=== PATIENT | male | born 1970 | race Caucasian/White ===

== ENCOUNTER → 2017-06-11 | Outpatient (CLI) | payer OTHER ==
[~2017-06-11] MED LIST: PERFLUTREN LIPID MICROSPHERE (DEFINITY) IV ONE
--- NOTE | 2017-06-11 19:00 | EXERCISE STRESS ECHO ---
*NOTICE TO RECEIVING REPUBLICAN AGENCY This information is strictly Confidential and protected under [place] law. [place] law prohibits you from making any further disclosure of this information unless further disclosure is expressly permitted by the written consent of the person to whom it pertains or is authorized by law. A general authorization for the release of medical or other information is not sufficient for this purpose. Hospital accepts no responsibility if the information is made available to any other person, INCLUDING THE PATIENT. Interpretation Summary * Name: EMMANUELLE RODRIGUEZ Study Date: 06/11/2017 09:48 AM BP: 115/83 mmHg * Patient Location: [facility] HR: 77 * : 1970 (M/d/yyyy) Gender: Male Height: 74 in * Age: 46 yrs Ethnicity: [place] Weight: 255 lb * Ordering Physician: Delbert Gant * Referring Physician: Delbert Gant D.O. * Performed By: Farida Nolasco RCS * * Reason For Study: EXERTIONAL DYSPNEA * BSA: 2.4 m2 * -- Conclusions -- * Stress Echo: * 1. Negative stress echo for ischemia at 99 % MPHR. * 2. Negative exercise ECG for ischemia at 99 % MPHR. * 3. Appropriate blood pressure response to exercise. * 4. He presented in sinus rhythm and before stress testing began, developed atrial fibrillation with rapid ventricular response for approximately 1 hour before spontaneously converting to sinus rhythm. Stress testing was performed while in sinus rhythm, after his atrial fibrillation episode. * 5. Study terminated due to fatigue. No chest pain reported. * 6. Good exercise tolerance. * 7. Technically difficult study, enhanced with IV Definity. * 8. Dr. Gant's office was notified regarding atrial fibrillation and the diagnosis was discussed with Mr. Rodriguez in detail. He was in sinus rhythm at the completion of today's study * Echo: * 1. Normal left ventricular size and systolic function. EF 55-60%. No regional wall motion abnormalities. No left ventricular hypertrophy. Type 1 diastolic dysfunction. * 2. No significant valvular abnormalities visualized. * 3. No prior study available for comparison. Procedure Details * ECHOEX, CPT #[id number] * ECHO COLOR FLOW, CPT #[id number] * ECHO DOPPLER, CPT #[id number] * A contrast injection of Definity was performed to improve assessment of LV function. * Contrast was injected into an intravenous site in the left arm. * One vial of Definity ultrasound contrast was diluted in normal saline to a total volume of 10 ml. A total of '3' ml of solution was administered during imaging. * Lot # [id number] of Definity utilized for procedure. * Expiration date 1 MAY 12. * The attending nurse who injected the contrast agent was SIM ESCALANTE CPL, RN. Left Ventricle * The left ventricle is normal in size. * There is normal left ventricular wall thickness. * Left ventricular systolic function is normal. * Resting wall motion: Normal. Stress wall motion: Appropriate increase in Left ventricular systolic function and decrease in cavity size. No stress induced segmental wall motion abnormalities. * The left ventricular ejection fraction increases normally with stress. The left ventricular end-systolic cavity size reduces post-stress (normal response). The left ventricular wall motion with stress is normal. Right Ventricle * Borderline right ventricular enlargement. * The right ventricular systolic function is normal as assessed by tricuspid annular plane systolic excursion (TAPSE) (normal >1.5 cm). Atria * The left atrial size is normal. * Right atrial size is normal. * There is no evidence of atrial septal defect, but resolution does not allow assessment for a patent foramen ovale. Mitral Valve * The mitral valve is grossly normal. * There is no mitral valve stenosis. * Significant mitral regurgitation is absent. Tricuspid Valve * The tricuspid valve is not well visualized, but is grossly normal. * There is no tricuspid stenosis. * Significant tricuspid regurgitation is absent. Aortic Valve * The aortic valve is trileaflet. * No hemodynamically significant valvular aortic stenosis. * No aortic regurgitation is present. Pulmonic Valve * The pulmonary valve is inadequately visualized, but the Doppler data is adequate for interpretation. * Trace pulmonic valvular regurgitation. Great Vessels * The aortic root is normal size. * Normal pulmonary and hepatic venous flow patterns. Normal IVC size and inspiratory collapse. Pericardium * There is no pericardial effusion. Stress Parameters * Initial ECG at rest demonstrated sinus rhythm at 77 bpm. He then developed atrial fibrillation with rapid ventricular response with heart rates up into the 130s and was asymptomatic while at rest. Atrial fibrillation began with the placement of IV. Atrial fibrillation lasted approximately 1 hour. He then spontaneously converted to sinus rhythm and stress testing was pursued as ordered. * Stress ECG: No ST changes. No arrhythmias. * The stress portion of this study was personally supervised by the undersigned interpreting physician. * Rest heart rate was '77' BPM. * Rest blood pressure was '115/83' * Maximum heart rate achieved was 173 bpm. * Maximum heart rate was 99 % of maximum age-predicted heart rate. * Maximum blood pressure was '183/99' * Total exercise time was '10:41' * Maximum exercise MET level achieved was '12.60' METS * Maximum treadmill speed was '4.10' miles per hour. * Maximum treadmill elevation was '16.00'% grade. * Exercise was terminated due to 'Dyspnea and fatigue' * Normal blood pressure response to exercise. MMode 2D Measurements and Calculations IVSd 1.1 cm IVSs 1.7 cm LVIDd 4.6 cm LVIDs 3.2 cm LVPWd 1.0 cm LVPWs 1.4 cm IVS/LVPW 1.1 FS 31.2 % EDV(Teich) 97.7 ml ESV(Teich) 40.0 ml EF(Teich) 59.0 % EDV(cubed) 97.8 ml ESV(cubed) 31.8 ml EF(cubed) 67.4 % % IVS thick 55.4 % % LVPW thick 38.6 % LV mass(C)d 174.9 grams LV mass(C)dI 72.6 grams/m\S\2 LV mass(C)s 184.3 grams LV mass(C)sI 76.5 grams/m\S\2 SV(Teich) 57.7 ml SI(Teich) 23.9 ml/m\S\2 SV(cubed) 66.0 ml SI(cubed) 27.4 ml/m\S\2 Ao root diam 3.5 cm Ao root area 9.8 cm\S\2 LA dimension 3.6 cm asc Aorta Diam 2.8 cm LA/Ao 1.0 Doppler Measurements and Calculations MV E max angela 62.0 cm/sec MV A max angela 65.8 cm/sec MV E/A 0.94 MV P1/2t max angela 65.6 cm/sec MV P1/2t 63.7 msec MVA(P1/2t) 3.5 cm\S\2 MV dec slope 301.3 cm/sec\S\2 MV dec time 0.19 sec Ao V2 max 110.4 cm/sec Ao max PG 4.9 mmHg Ao max PG (full) 0.63 mmHg LV V1 max PG 4.2 mmHg LV V1 max 103.0 cm/sec PA V2 max 85.4 cm/sec PA max PG 2.9 mmHg
== END | disposition home or self-care (01) ==
LOC: C.CPL 09:51
DX: R06.00 Dyspnea, unspecified (principal)

== ENCOUNTER 2017-07-18 11:02 | Emergency (ER) | payer OTHER ==
[~2017-07-18] VITALS: Ht 188 cm; Wt 111.2 kg
[2017-07-18 11:11] VITALS: TEMP 36.7; Ht 188 cm; Wt 111.2 kg
[2017-07-18] MEDS ORDERED: PROB1TAB16 PO (11:17)
[2017-07-18] MEDS ORDERED: MULT-506 PO (11:17)
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
[2017-07-18 12:42] VITALS: BP 130/84; PULSE 68; O2SAT 99
== END 2017-07-18 12:43 | disposition home or self-care (01) ==
LOC: C.EDB 11:03 → C.EDD 12:43
DX: S00.81XA Abrasion of other part of head, initial encounter (principal); V43.52XA Car driver injured in collision with other type car in traffic accident, initial encounter; Y92.410 Unspecified street and highway as the place of occurrence of the external cause; Z79.899 Other long term (current) drug therapy

== ENCOUNTER 2020-04-28 21:34 | Inpatient (IN) ==
[2020-04-28] MEDS ORDERED: DEXAMETHASONE SOD INJ 10 MG/ML VIAL IV ONE (21:51)
[2020-04-28] MEDS ORDERED: GI COCKTAIL ED USE PO ONE (21:51)
--- NOTE | 2020-04-28 21:58 | Emergency Department Note ---
History of Present Illness General Chief complaint: Illness Stated complaint: +COVID/ CHEST PAIN; SOB Time Seen by Provider: 04/28/20 21:35 History of Present Illness This 49-year-old presents to the ER complaining of worsening Covid symptoms who tested +2 days ago Location: Generalized Quality: Hard to breathe Severity: Moderate Duration: Past few days Timing: Started few days ago Context: Patient's pulse ox was in the mid 80s and called EMS Modifying factors: better with oxygen; worse with activity Patient states his home pulse ox was in the mid 80s. He developed chest pain and worsening shortness of breath. His was concerned and called EMS. He states he was exposed to Covid at work. Patient denies a fever, chills, body aches, dyspnea and acid reflux. Patient is requested to be admitted to the hospital. Home Medications Medication Instructions Recorded Confirmed Type ipratropium-albuterol 3 ml INHALATION QID PRN 04/26/20 04/28/20 History mometasone-formoterol [Dulera] 2 puff INHALATION BID PRN 04/26/20 04/28/20 History prednisone 20 mg PO UD 04/28/20 04/28/20 History Allergies Allergy/AdvReac Type Severity Reaction Status Date / Time No Known Allergies Allergy Unverified 04/28/20 23:26 Past Med/Surg History Medical History No significant past medical history Surgical History History of vasectomy Family History Other Coronary heart disease Heart disease Social History Smoking Status: Never smoker Preferred Language: Finnish marital status: Current Living Situation: Family current occupational status: employed Feels Safe at Home: Yes Review of Systems A total of 10 systems reviewed and were otherwise negative Physical Exam Vital Signs Vital Signs - 24 hr 04/28/20 21:49 04/28/20 21:58 04/28/20 22:00 Temperature 39.5 C H Temperature Source Oral Pulse Rate 105 H Respiratory Rate 18 Respiratory Effort / Characteristics Non-Labored Blood Pressure 136/75 Blood Pressure Mean 95 Pulse Oximetry 93 90 90 Oxygen Delivery Method Room Air Room Air Room Air Oxygen Flow Rate Sepsis Recent Fever Within 48 Hours Yes Sepsis New/Unexplained Change in Mental Status N/A Sepsis Action Taken by Nursing Physician Notified 04/28/20 22:33 Temperature Temperature Source Pulse Rate Respiratory Rate Respiratory Effort / Characteristics Blood Pressure Blood Pressure Mean Pulse Oximetry 94 Oxygen Delivery Method Nasal Cannula Oxygen Flow Rate 2 Sepsis Recent Fever Within 48 Hours Sepsis New/Unexplained Change in Mental Status Sepsis Action Taken by Nursing VITALS: Vitals are noted on the nurse's note and reviewed by myself. Vital signs reviewed. GENERAL: White male ill-appearing, appearing short of breath SKIN: The skin was without rashes, erythema, edema, or bruising. There is no tenting of the skin. Capillary reflex less than 2 seconds. HEAD: Normocephalic atraumatic. EARS: External auditory canals clear EYES: Pupils equal round and reactive to light and accommodation. Conjunctivae without injection, sclerae without icterus. Extraocular movements intact. NOSE: Patent, turbinates without inflammation or discharge. MOUTH: Mucous membranes mildly dry. Pharynx without erythema or exudate. Uvula midline. Airway patent. Tongue does not deviate. NECK: Supple without nuchal rigidity. No lymphadenopathy. No thyromegaly. Cervical spine is nontender. No JVD. HEART: Regular rate and rhythm without murmurs gallops or rubs. LUNGS: Mild diffuse end expiratory wheezes, No retractions or accessory muscle use. ABDOMEN: Positive bowel sounds x 4. Normal tympanic percussion. Soft, nontender, without masses or organomegaly. Pacheco sign negative. No guarding or rebound tenderness. No CVA tenderness MUSCULOSKELETAL: No muscle atrophy, erythema, or edema noted. NEURO: Patient was alert and oriented to person place and time. Normal sensation to light and sharp touch. No focal neurological deficits. Course Administered Medications Discontinued Medications Al Hydrox/Mg Hydrox/Simethicone (Gi Cocktail Ed Use) 1 dose PO ONE ONE Stop: 04/28/20 21:52 Last Admin: 04/28/20 22:34 Dose: 1 dose Documented by: [id number] Dexamethasone (Dexamethasone Sod Inj 10 Mg/Ml Vial) 6 mg IV NOW ONE Stop: 04/28/20 21:52 Last Admin: 04/28/20 22:34 Dose: 6 mg Documented by: [id number] Sodium Chloride (Nss 1000ml) 1,000 mls @ 999 mls/hr IV .Q1H1M FE Stop: 04/28/20 23:00 Last Infusion: 04/28/20 23:51 Dose: 0 mls/hr Documented by: [id number] Admin: 04/28/20 22:34 Dose: 999 mls/hr Documented by: [id number] Ibuprofen (Ibuprofen 800 Mg Tab) 800 mg PO NOW STA Stop: 04/28/20 22:57 Last Admin: 04/28/20 23:07 Dose: 800 mg Documented by: [id number] Medical Decision Making Medical Records Attestation: I reviewed the patient's medical records. Home Medications Current Medication List: was personally reviewed by me Laboratory Data Attestation: I reviewed the patient's lab results. Result diagrams: 04/28/20 22:28 04/28/20 22:28 Lab Results 04/28/20 04/28/20 04/28/20 Range/Units 22:28 22:28 22:28 WBC 5.49 (4.8-10.8) K/uL RBC 4.54 L (4.7-6.1) M/uL Hgb 13.6 L (14.0-18.0) g/dL Hct 39.4 L (42-52) % MCV 86.8 (80-100) fL MCH 30.0 (25-34) pg MCHC 34.5 (32-36) g/dL RDW Std Deviation 43.0 (36.4-46.3) fL RDW Coeff of Anjelica 13.5 (11.5-14.5) % Plt Count 170 (130-400) K/uL MPV 10.0 (7.4-10.4) fL Immature Gran % (Auto) 0.2 % Neut % (Auto) 78.2 % Lymph % (Auto) 15.8 % Collingsworth % (Auto) 5.6 % Eos % (Auto) 0.0 % Baso % (Auto) 0.2 % Neut # (Auto) 4.29 (1.4-6.5) K/uL Lymph # (Auto) 0.87 L (1.2-3.4) K/uL Collingsworth # (Auto) 0.31 (0.11-0.59) K/uL Eos # (Auto) 0.00 (0-0.5) K/uL Baso # (Auto) 0.01 (0-0.2) K/uL Immature Gran # (Auto) 0.01 (0.00-0.02) K/uL PT (9.0-12.0) Seconds INR (0.9-1.1) APTT (21.0-31.0) Seconds PTT Ratio ABG pH 7.45 (7.35-7.45) ABG pCO2 35 (35-46) mmHg ABG pO2 45 L (80-95) mmHg ABG HCO3 24 (19-24) mmol/L ABG O2 Saturation 81.3 L (90-95) % ABG Base Excess 0.1 (-9-1.8) mEq/L Hussain Test Pos (Pos) Barometric Pressure 727.0 mm/Hg Oxygen Given Room Air Sodium 134 L (136-145) mmol/L Potassium 3.7 (3.5-5.1) mmol/L Chloride 102 (98-107) mmol/L Carbon Dioxide 26 (21-32) mmol/L Anion Gap 6.0 (3-11) BUN 12 (7-18) mg/dl Creatinine 1.05 (0.6-1.4) mg/dl Est Cr Clr Drug Dosing 117.3 ml/min Est GFR ( Amer) 96.1 Est GFR (Non-Af Amer) 83.0 BUN/Creatinine Ratio 11.1 (10-20) Glucose 95 (70-99) mg/dl Lactate (0.4-2.0) mmol/L Calcium 8.3 L (8.5-10.1) mg/dl Magnesium 1.4 L (1.8-2.4) mg/dl Total Bilirubin 0.4 (0.2-1) mg/dl AST 23 (15-37) U/L ALT 28 (12-78) U/L Alkaline Phosphatase 59 (45-117) U/L Troponin I < 0.015 (0-0.045) ng/ml Total Protein 6.8 (6.4-8.2) gm/dl Albumin 3.1 L (3.4-5.0) gm/dl Globulin 3.7 (2.5-4.0) gm/dl Albumin/Globulin Ratio 0.8 L (0.9-2) 04/28/20 04/28/20 Range/Units 22:28 22:28 WBC (4.8-10.8) K/uL RBC (4.7-6.1) M/uL Hgb (14.0-18.0) g/dL Hct (42-52) % MCV (80-100) fL MCH (25-34) pg MCHC (32-36) g/dL RDW Std Deviation (36.4-46.3) fL RDW Coeff of Anjelica (11.5-14.5) % Plt Count (130-400) K/uL MPV (7.4-10.4) fL Immature Gran % (Auto) % Neut % (Auto) % Lymph % (Auto) % Collingsworth % (Auto) % Eos % (Auto) % Baso % (Auto) % Neut # (Auto) (1.4-6.5) K/uL Lymph # (Auto) (1.2-3.4) K/uL Collingsworth # (Auto) (0.11-0.59) K/uL Eos # (Auto) (0-0.5) K/uL Baso # (Auto) (0-0.2) K/uL Immature Gran # (Auto) (0.00-0.02) K/uL PT 10.3 (9.0-12.0) Seconds INR 1.0 (0.9-1.1) APTT 33.8 H (21.0-31.0) Seconds PTT Ratio 1.3 ABG pH (7.35-7.45) ABG pCO2 (35-46) mmHg ABG pO2 (80-95) mmHg ABG HCO3 (19-24) mmol/L ABG O2 Saturation (90-95) % ABG Base Excess (-9-1.8) mEq/L Hussain Test (Pos) Barometric Pressure mm/Hg Oxygen Given Sodium (136-145) mmol/L Potassium (3.5-5.1) mmol/L Chloride (98-107) mmol/L Carbon Dioxide (21-32) mmol/L Anion Gap (3-11) BUN (7-18) mg/dl Creatinine (0.6-1.4) mg/dl Est Cr Clr Drug Dosing ml/min Est GFR ( Amer) Est GFR (Non-Af Amer) BUN/Creatinine Ratio (10-20) Glucose (70-99) mg/dl Lactate 1.2 (0.4-2.0) mmol/L Calcium (8.5-10.1) mg/dl Magnesium (1.8-2.4) mg/dl Total Bilirubin (0.2-1) mg/dl AST (15-37) U/L ALT (12-78) U/L Alkaline Phosphatase (45-117) U/L Troponin I (0-0.045) ng/ml Total Protein (6.4-8.2) gm/dl Albumin (3.4-5.0) gm/dl Globulin (2.5-4.0) gm/dl Albumin/Globulin Ratio (0.9-2) Imaging Data Attestation: I personally reviewed and interpreted this imaging study as follows: MDM Narrative Prior records/ancillary studies reviewed. Triage Nursing notes reviewed. Additional history obtained from EMS The patient's history was concerning for fever. Differential diagnosis: Etiologies such as viral syndrome, otitis, pharyngitis, pneumonia, influenza, m eningitis, urinary tract infection, sepsis, bacteremia, as well as others were entertained. Physical examination: As above ER treatment provided: An order was placed for continuous cardiac monitoring. The monitor shows a rate of 60-1 20 with a sinus rhythm. IV fluids, Decadron On reassessment the patient felt better. Diagnostics interpreted by me: ECG: Poor baseline, normal sinus, no acute ST-T wave changes, rate of 104. Impression sinus tachycardia interpreted by myself EKG ordered for dyspnea I think arrhythmia is unlikely. EKG shows normal sinus rhythm with no interval abnormalities such as QT prolongation or WPW. There are no findings to suggest Brugada syndrome. Cardiac monitoring in the emergency department reveals no tachycardic or bradycardic dysrhythmia. Hypertrophic cardiomyopathy was considered but there are no clear historical elements pointing toward this. EKG is not suggestive. The QRS voltage is not extremely large and there are no suggestive Q waves. The labs revealed no leukocytosis Blood cultures pending Known Covid per patient ABG reviewed Imaging studies: Chest x-ray with patchy infiltrates per my interpretation Consultation: A consultation was placed with Dr. Armstrong. The case was discussed and diagnostics were reviewed. The patient was evaluated in the ER for further treatment. This appears to be consistent with Covid pneumonia who is hypoxic. Patient was given steroids. Medicine was consulted. He will be evaluated for admission. Patient is requesting for admission. By the evaluation outlined above emergent etiologies such as otitis, pharyngitis, meningitis, urinary tract infection, sepsis, bacteremia, as well as others were deemed relatively unlikely. The pt informed about the findings as listed above. All questions were answered and pleased with the treatment. The chart was completed utilizing [employer] Speech voice recognition software. Grammatical errors, random word insertions, pronoun errors, and incomplete sentences are an occassional consequence of this system due to software limitations, ambient noise, and hardware issues. Any formal questions or concerns about the content, text, or information contained within the body of this dictation should be directly addressed to the physician contract administrative assistant for clarification. Impression & Plan Pneumonia due to 2019 novel coronavirus, Hypoxemia Discharge Plan Visit Data Chief Complaint: Illness Stated Complaint: +COVID/ CHEST PAIN; SOB ED Provider: Fausto Pulido ED Midlevel Provider: Irish Arredondo Discharge Problem: Pneumonia due to 2019 novel coronavirus, Hypoxemia Patient Disposition: Admitted As Inpatient Condition: Fair Forms Stand Alone Forms: My [facility] [employer] Prescriptions Prescriptions: No Action Dulera 200-5 mcg/actuation HFA aerosol inhaler 2 puff inhalation BID PRN (Reason: Shortness Of Breath Or Wheezing) RF: 0 ipratropium-albuterol 0.5 mg-3 mg(2.5 mg base)/3 mL solution for nebulization 3 ml INHALATION QID PRN (Reason: Shortness Of Breath Or Wheezing) RF: 0 prednisone 20 mg tablet 20 mg PO UD RF: 0 Referrals Referrals: Delbert Gant Jr, [Primary Care Provider] -
[2020-04-28] MEDS ORDERED: SODIUM CHLORIDE 0.9% 1000ML 1,000 ML IV SCH (22:00)
[2020-04-28 22:45] LABS: Basophils # (auto) 0.01 K/uL (0-0.2); Basophils % (auto) 0.2 %; Hematocrit (blood only) 39.4 % (42-52); Hemoglobin 13.6 g/dL (14.0-18.0); Immature Granulocytes # (auto) 0.01 K/uL (0.00-0.02); Immature Granulocytes % (auto) 0.2 %; Lymphocytes # (auto) 0.87 K/uL (1.2-3.4); Lymphocytes % (auto) 15.8 %; Mean Corpuscular Hgb Conc 34.5 g/dL (32-36); Mean Corpuscular Volume 86.8 fL (80-100); Monocytes # (auto) 0.31 K/uL (0.11-0.59); Monocytes % (auto) 5.6 %; Neutrophils # (auto) 4.29 K/uL (1.4-6.5); Neutrophils % (auto) 78.2 %; Platelet Count 170 K/uL (130-400); RDW Coefficient of Variation 13.5 % (11.5-14.5); Red Blood Count 4.54 M/uL (4.7-6.1); White Blood Count 5.49 K/uL (4.8-10.8)
[2020-04-28 22:55] LABS: Partial Thromboplastin Ratio 1.3; Partial Thromboplastin Time 33.8 Seconds (21.0-31.0); Prothrombin Time 10.3 Seconds (9.0-12.0)
[2020-04-28] MEDS ORDERED: IBUPROFEN 800 MG TAB PO STA (22:56)
[2020-04-28 23:00] LABS: Base Excess ABG 0.1 mEq/L (-9-1.8); HCO3 ABG 24 mmol/L (19-24); Oxygen Saturation ABG 81.3 % (90-95); PCO2 ABG 35 mmHg (35-46); PO2 ABG 45 mmHg (80-95); pH ABG 7.45 (7.35-7.45)
[2020-04-28 23:01] LABS: Allen Test Pos (Pos)
[2020-04-28 23:04] LABS: Alanine Aminotransferase 28 U/L (12-78); Albumin Level 3.1 gm/dl (3.4-5.0); Aspartate Aminotransferase 23 U/L (15-37); BUN Creatinine Ratio 11.1 (10-20); Blood Urea Nitrogen 12 mg/dl (7-18); Calcium 8.3 mg/dl (8.5-10.1); Carbon Dioxide 26 mmol/L (21-32); Chloride 102 mmol/L (98-107); Creatinine Clr Calc Pharmacy 117.3 ml/min; Est GFR (African American) 96.1; Glucose 95 mg/dl (70-99); Magnesium 1.4 mg/dl (1.8-2.4); Potassium 3.7 mmol/L (3.5-5.1); Sodium 134 mmol/L (136-145)
[2020-04-28 23:08] LABS: Albumin Globulin Ratio 0.8 (0.9-2); Alkaline Phosphatase 59 U/L (45-117); Bilirubin,Total 0.4 mg/dl (0.2-1); Globulin 3.7 gm/dl (2.5-4.0); Total Protein 6.8 gm/dl (6.4-8.2); Troponin I < 0.015 ng/ml (0-0.045)
--- NOTE | 2020-04-29 00:21 | History & Physical Report ---
Date of Service April 29, 2020 Assessment & Plan (1) Pneumonia due to 2019 novel coronavirus: Pneumonia due to COVID-19 virus with hypoxemia- Dexamethasone 6 mg IV daily Nasal cannula oxygen, titrate to keep pulse ox 94 to 95% DuoNebs every 4 hours as needed Azithromycin 500 mg IV daily NSS + KCl 20 mEq at 100 mils per hour Breo Ellipta substitute for Dulera Zinc sulfate 200 mg p.o. every morning Present on Admission?: Yes (2) Hypoxemia: See above Present on Admission?: Yes (3) Hypomagnesemia: Magnesium 1.4 on admission labs. Give 2 g of mag sulfate IV, and recheck in a.m. Present on Admission?: Yes History of Present Illness Chief Complaint: The patient presents to the emergency department with worsening shortness of breath and fatigue secondary to COVID-19 infection Primary Care Provider: Delbert Gant Jr, DO The patient is a 49-year-old male with a past medical history including COVID-19 positive laboratory test at [facility] on 04/25/2020. He presented to the emergency department at [facility] on 04/26/2020 due to worsening symptoms, and was discharged to home on Dulera, Combivent and prednisone. Tonight patient reports with progressively worsening symptoms of shortness of breath, dyspnea on exertion and generalized fatigue. Allergies Allergy/AdvReac Type Severity Reaction Status Date / Time No Known Allergies Allergy Unverified 04/28/20 23:26 Home Medications Medication Instructions Recorded Confirmed Type ipratropium-albuterol 3 ml INHALATION QID PRN 04/26/20 04/28/20 History mometasone-formoterol [Dulera] 2 puff INHALATION BID PRN 04/26/20 04/28/20 Hist ory prednisone 20 mg PO UD 04/28/20 04/28/20 History Past Med/Surg History Medical History No significant past medical history Surgical History History of vasectomy Family History Other Coronary heart disease Heart disease Social History Smoking Status: Never smoker Hx Alcohol Use: Yes Hx Substance Use: No Preferred Language: Slovenian Communication Ability: Effective Talent Engineer Required: No Beliefs That Will Affect Care: None marital status: Current Living Situation: Family current occupational status: employed Other Information That Helps Us Care for You: No Feels Safe at Home: Yes Safety Concerns: Feels Safe At This Time Assistive Devices: Oxygen - Continuous Review of Systems Review of Systems: The patient denies chest pain, palpitations, cough, lower extremity swelling, sore throat, fevers, chills, sweats, nausea, vomiting, diarrhea , constipation, abdominal pain, pelvic pain, blood in urine or stool, dysuria, urinary frequency or urgency, lightheadedness, dizziness, headache, memory loss, loss of consciousness, rash, abnormal bruising or bleeding, imbalance, focal weakness, numbness or tingling in arms or legs, back or neck pain, or night sweats. The review of systems is otherwise negative other than for that already noted above, and at least 10 systems have been reviewed. Physical Exam Physical Exam: The patient is awake, alert and oriented 3, well developed and well nourished, normocephalic and atraumatic, lying in bed and in no acute distress. HEENT--PERRL, EOMI, mucous membranes and oropharynx dry. Neck--supple. No JVD. No bruits. Thyroid normal, trachea midline, no adenopathy. Heart--normal S1 and S2. No murmurs, rubs or gallops. Lungs--clear bilaterally, no respiratory distress, no accessory muscle use. Abdomen--normal bowel sounds and soft. Nontender. Nondistended, no hernias or masses, no organomegaly. Extremities--no cyanosis or clubbing. No edema. Dermatologic--normal skin turgor, normal color, no abnormal lymph nodes, no rash. Neurologic--cranial nerves II through XII grossly intact. Rheumatologic--normal range of motion. Psychiatric--normal affect. Results & Data Results & Data ([facility]) Vital Signs (Past 12 Hours) Vital Signs Temp Pulse Resp BP Pulse Ox 04/28/20 22:33 94 04/28/20 22:00 90 04/28/20 21:58 90 04/28/20 21:49 103.1 F H 105 H 18 136/75 93 Laboratory Results Laboratory Results WBC 5.49 K/uL (4.8-10.8) 04/28/20: RBC 4.54 M/uL (4.7-6.1) L 04/28/20 22: Hgb 13.6 g/dL (14.0-18.0) L 04/28/20 22: Hct 39.4 % (42-52) L 04/28/20 22: MCV 86.8 fL (80-100) 04/28/20 22: MCH 30.0 pg (25-34) 04/28/20: MCHC 34.5 g/dL (32-36) 04/28/20: RDW Std Deviation 43.0 fL (36.4-46.3) 04/28/20: RDW Coeff of Anjelica 13.5 % (11.5-14.5) 04/28/20: Plt Count 170 K/uL (130-400) 04/28/20: MPV 10.0 fL (7.4-10.4) 04/28/20: Immature Gran % (Auto) 0.2 % 04/28/20 22: Neut % (Auto) 78.2 % 04/28/20 22: Lymph % (Auto) 15.8 % 04/28/20 22: Mcdonough % (Auto) 5.6 % 04/28/20: Eos % (Auto) 0.0 % 04/28/20: Baso % (Auto) 0.2 % 04/28/20: Neut # (Auto) 4.29 K/uL (1.4-6.5) 04/28/20: Lymph # (Auto) 0.87 K/uL (1.2-3.4) L 04/28/20: Mcdonough # (Auto) 0.31 K/uL (0.11-0.59) 04/28/20 22: Eos # (Auto) 0.00 K/uL (0-0.5) 04/28/20 22: Baso # (Auto) 0.01 K/uL (0-0.2) 04/28/20:28 Immature Gran # (Auto) 0.01 K/uL (0.00-0.02) 04/28/20 22: PT 10.3 Seconds (9.0-12.0) 04/28/20: INR 1.0 (0.9-1.1) 04/28/20 22: APTT 33.8 Seconds (21.0-31.0) H 04/28/20: PTT Ratio 1.3 04/28/20: ABG pH 7.45 (7.35-7.45) 04/28/20 22: ABG pCO2 35 mmHg (35-46) 04/28/20: ABG pO2 45 mmHg (80-95) L 04/28/20: ABG HCO3 24 mmol/L (19-24) 04/28/20: ABG O2 Saturation 81.3 % (90-95) L 04/28/20: ABG Base Excess 0.1 mEq/L (-9-1.8) 04/28/20: Hussain Test Pos (Pos) 04/28/20 22: Barometric Pressure 727.0 mm/Hg 04/28/20 22: Oxygen Given Room Air 04/28/20 22: Sodium 134 mmol/L (136-145) L 04/28/20: Potassium 3.7 mmol/L (3.5-5.1) 04/28/20: Chloride 102 mmol/L (98-107) 04/28/20: Carbon Dioxide 26 mmol/L (21-32) 04/28/20: Anion Gap 6.0 (3-11) 04/28/20 22: BUN 12 mg/dl (7-18) 04/28/20: Creatinine 1.05 mg/dl (0.6-1.4) 04/28/20: Est Cr Clr Drug Dosing 117.3 ml/min 04/28/20: Est GFR ( Amer) 96.1 04/28/20: Est GFR (Non-Af Amer) 83.0 04/28/20 22: BUN/Creatinine Ratio 11.1 (10-20) 04/28/20: Glucose 95 mg/dl (70-99) 04/28/20 22:28 Lactate 1.2 mmol/L (0.4-2.0) 04/28/20 22:28 Calcium 8.3 mg/dl (8.5-10.1) L 04/28/20 22:28 Magnesium 1.4 mg/dl (1.8-2.4) L 04/28/20 22:28 Total Bilirubin 0.4 mg/dl (0.2-1) 04/28/20 22:28 AST 23 U/L (15-37) 04/28/20 22:28 ALT 28 U/L (12-78) 04/28/20 22:28 Alkaline Phosphatase 59 U/L (45-117) 04/28/20 22:28 Troponin I < 0.015 ng/ml (0-0.045) 04/28/20 22:28 Total Protein 6.8 gm/dl (6.4-8.2) 04/28/20 22:28 Albumin 3.1 gm/dl (3.4-5.0) L 04/28/20 22:28 Globulin 3.7 gm/dl (2.5-4.0) 04/28/20 22:28 Albumin/Globulin Ratio 0.8 (0.9-2) L 04/28/20 22:28 Code Status & VTE Plan Code Status Full code VTE Prophylaxis Plan VTE Prophylaxis will be ordered: Yes PG Care Time/CCT Total # of Minutes Spent Total Time Spent with Patient: Total time spent is greater than 50% in coordination of care (as documented) at patient's floor/unit and/or counseling patient: Coding Level of Care Code 86123 Initial Inpt Care Lvl 2 Diagnoses Pneumonia due to 2019 novel coronavirus U07.1; J12.82 Hypoxemia R09.02 Hypomagnesemia E83.42
[2020-04-29] MEDS ORDERED: ONDANSETRON INJ 2 MG/ML 2 ML VIAL IV PRN (02:42)
[2020-04-29] MEDS ORDERED: ALBUT/IPRATROP 3MG/0.5MG NEB 3 ML VIAL INH PRN (02:42)
[2020-04-29] MEDS: MAGNESIUM SULFATE / D5W 1 GM/100 ML BAG IV SCH ×2 (04:28→06:20)
[2020-04-29] MEDS: NSS + 20MEQ KCL 20 MEQ/1,000 ML BAG IV SCH (07:00)
--- NOTE | 2020-04-29 08:03 | XRay Report ---
XR chest 1V portable HISTORY: SEPSIS COMPARISON: Chest 04/26/2020. FINDINGS: Progression of the patchy bilateral airspace opacities, right greater than left. This likel y represents a viral pneumonia. No pneumothorax. No pleural effusions. The heart remains mildly enlar ged. There are low lung volumes. IMPRESSION: Progression of the patchy bilateral airspace opacities consistent with a viral pneumonia. ACT 112: Negative or not required by law. Electronically signed by: Killian Jones M.D. 04/29/2020 8:02 AM
[2020-04-29] MEDS: FLUTICASONE/VILANTEROL 200/25MCG 14 PUFFS/INHALER INH SCH (08:50)
[2020-04-29] MEDS: ZINC SULFATE 220 MG CAPSULE PO SCH (08:50)
[2020-04-29] MEDS: dexAMETHasone 6 MG in SYRINGE 0 ML IV SCH (08:50)
[2020-04-29] MEDS: AZITHROMYCIN 500 MG in DEXTROSE 5% 250 ML IV SCH (08:54)
[2020-04-29] MEDS: ACETAMINOPHEN 325 MG TAB PO PRN ×3 (09:05→21:05)
[2020-04-29] MEDS: SIMETHICONE 80 MG CHEW PO PRN ×2 (15:05→20:57)
--- NOTE | 2020-04-29 15:54 | History & Physical Bridge Note ---
Date of Service April 29, 2020 History & Physical Bridge Note I have examined the patient, reviewed the History & Physical and in the interval since the performance of the History & Physical I have noted the following changes of clinical significance: admitted after midnight today he is feeling better on oxygen, 97% on two liters, turned him down to one liter his main complaint is a great deal of bloating he did have a large BM today, passing some flatus added Simethicone, just took it so waiting to see if it works anticipate discharge to home in 1-2 days
[2020-04-30] MEDS: ACETAMINOPHEN 325 MG TAB PO PRN ×3 (04:23→21:03)
[2020-04-30 07:47] LABS: Hematocrit (blood only) 40.3 % (42-52); Hemoglobin 14.1 g/dL (14.0-18.0); Immature Granulocytes # (auto) 0.01 K/uL (0.00-0.02); Immature Granulocytes % (auto) 0.1 %; Lymphocytes # (auto) 1.23 K/uL (1.2-3.4); Lymphocytes % (auto) 16.6 %; Mean Corpuscular Hemoglobin 30.5 pg (25-34); Mean Platelet Volume 10.8 fL (7.4-10.4); Monocytes # (auto) 0.38 K/uL (0.11-0.59); Monocytes % (auto) 5.1 %; Neutrophils # (auto) 5.78 K/uL (1.4-6.5); Neutrophils % (auto) 78.2 %; Platelet Count 193 K/uL (130-400); RDW Coefficient of Variation 13.4 % (11.5-14.5); Red Blood Count 4.63 M/uL (4.7-6.1)
[2020-04-30 08:15] LABS: Albumin Level 2.9 gm/dl (3.4-5.0); BUN Creatinine Ratio 13.8 (10-20); Calcium 8.6 mg/dl (8.5-10.1); Creatinine Clr Calc Pharmacy 113.8 ml/min; Est GFR (African American) 92.9; Est GFR (Non-African American) 80.2; Magnesium 1.9 mg/dl (1.8-2.4)
[2020-04-30 08:18] LABS: Albumin Globulin Ratio 0.7 (0.9-2); Bilirubin,Total 0.4 mg/dl (0.2-1); Globulin 3.9 gm/dl (2.5-4.0); Total Protein 6.8 gm/dl (6.4-8.2)
[2020-04-30] MEDS: dexAMETHasone 6 MG in SYRINGE 0 ML IV SCH (08:30)
[2020-04-30] MEDS: FLUTICASONE/VILANTEROL 200/25MCG 14 PUFFS/INHALER INH SCH (08:31)
[2020-04-30] MEDS: SIMETHICONE 80 MG CHEW PO PRN (08:31)
[2020-04-30] MEDS: ZINC SULFATE 220 MG CAPSULE PO SCH (08:31)
[2020-04-30] MEDS: AZITHROMYCIN 500 MG in DEXTROSE 5% 250 ML IV SCH (08:34)
[2020-04-30] MEDS ORDERED: SUCRALFATE 1 GM/10 ML UDC PO ONE (09:39)
--- NOTE | 2020-04-30 09:52 | Hospitalist Progress Note ---
Date of Service April 30, 2020 Assessment & Plan (1) Pneumonia due to 2019 novel coronavirus: Pneumonia due to COVID-19 virus with hypoxemia- Dexamethasone 6 mg IV daily, plan for 10 days or until he is down to room air, whichever happens first Nasal cannula oxygen, titrate to keep pulse ox 94 to 95%, stable on 2L today DuoNebs every 4 hours as needed Azithromycin 500 mg IV daily x 5 days Breo Ellipta substitute for Dulera Zinc sulfate 200 mg p.o. every morning he had a fever this morning treated with tylenol suspect he has some COVID enteritis as well as he had diarrhea this morning (2) Hypoxemia: still on 2L NC today, no distress, lungs clear continue dexamethasone, try to wean as tolerated (3) Hypomagnesemia: replaced, now stable (4) Diarrhea: had a loose BM today, green color, no blood likely has some enteritis from COVID he is well hydrated, encouraged him to keep drinking, replace whatever he loses (5) Epigastric pain: feels bloated, he says that moving his bowels helped more than anything keep on Protonix BID for now lipase normal, troponin negative and EKG without ischemic changes continue to monitor Carafate and Simethicone did not help pain Admission and Anticipated Discharge Date Admission Date: April 29, 2020 Subjective patient says he feels no better than yesterday, main issue is epigastric discomfort that is constant he says he gets minimal relief with passing flatus and/or burping, no relief with the Simethicone he says he normally does not have pain like this he had a solid BM yesterday, no nausea or vomiting at all, denies sensation of heartburn his breathing is okay, mostly feels like he cannot take a deep breath due to abdominal distension no chest pain or pressure he feels hot and diaphoretic and has a headache, he had a true fever of 38.8 early this morning labs reviewed, WBC 7.4, Hb normal, CMP shows normal Cr and electrolytes and liver enzymes lipase normal, troponin negative check a 12 lead EKG - NSR, no ischemic changes try Protonix IV and Carafate to see if it helps with gastritis symptoms patient had a loose BM, says it was green, this helped his symptoms a little bit Review of Systems Review of Systems: All systems reviewed & are unremarkable except as noted in Subjective Physical Exam Constitutional: WD/WN, vitals as above + ill appearing, + obese and cooperative; + uncomfortable Neck: trachea midline, no thyromegaly Respiratory: normal respiratory effort, lungs clear to auscultation Cardiovascular: RRR, no murmur, no edema Gastrointestinal (Abdomen): Inspection/Auscultation: + abdomen distended and normal bowel sounds Percussion/Palpation: abdomen soft and + tympanic to percussion; abdomen nontender, no guarding and abdomen not rigid Musculoskeletal: no cyanosis or clubbing, extremities motor strength 5/5 Skin: no rashes, warm and dry Neurologic: patellar DTR's 2+ bilat, sensation intact and PERRL, EOMI, accommodation nl, no face palsy, no dysarthria Psychiatric: A+Ox3, euthymic affect Lymphatic: no cervical or axillary lymphadenopathy Results & Data Results & Data ([facility]) Vital Signs (Past 12 Hours) Vital Signs Temp Pulse Pulse Resp BP Pulse Ox Pulse Ox 04/30/20 07:54 94 H 04/30/20 07:21 37.2 C 93 H 19 145/76 H 98 04/30/20 07:00 94 H 04/30/20 06:20 142/89 H 98 04/30/20 06:00 38.2 C H 04/30/20 04:15 38.8 C H 101 H 22 160/105 H 95 04/30/20 02:42 98 04/29/20 23:47 86 04/29/20 23:39 36.9 C 94 H 18 141/86 H 96 04/29/20 21:52 94 Laboratory Results Laboratory Results - last 24 hr 04/30/20 04/30/20 06:16 06:16 WBC 7.40 RBC 4.63 L Hgb 14.1 Hct 40.3 L MCV 87.0 MCH 30.5 MCHC 35.0 RDW Std Deviation 43.0 RDW Coeff of Anjelica 13.4 Plt Count 193 MPV 10.8 H Immature Gran % (Auto) 0.1 Neut % (Auto) 78.2 Lymph % (Auto) 16.6 [place] % (Auto) 5.1 Eos % (Auto) 0.0 Baso % (Auto) 0.0 Neut # (Auto) 5.78 Lymph # (Auto) 1.23 [place] # (Auto) 0.38 Eos # (Auto) 0.00 Baso # (Auto) 0.00 Immature Gran # (Auto) 0.01 Sodium 136 Potassium 4.0 Chloride 102 Carbon Dioxide 25 Anion Gap 9.0 BUN 15 Creatinine 1.08 Est Cr Clr Drug Dosing 113.8 Est GFR ( Amer) 92.9 Est GFR (Non-Af Amer) 80.2 BUN/Creatinine Ratio 13.8 Glucose 96 Calcium 8.6 Magnesium 1.9 Total Bilirubin 0.4 AST 24 ALT 25 Alkaline Phosphatase 53 Total Protein 6.8 Albumin 2.9 L Globulin 3.9 Albumin/Globulin Ratio 0.7 L Medications Administered Current Inpatient Medications Acetaminophen (Acetaminophen 325 Mg Tab) 650 mg PO Q4H PRN PRN Reason: Pain or Fever Stop: 05/29/20 02:41 Last Admin: 04/30/20 08:34 Dose: 650 mg Documented by: Albuterol (Albut/Ipratrop 3mg/0.5mg Neb 3 Ml Vial) 3 ml INH QID PRN PRN Reason: Shortness Of Breath Or Wheezing Stop: 05/29/20 02:41 Fluticasone/Vilanterol (Fluticasone/Vilanterol 200/25mcg 14 Puffs/Inhaler) 1 puffs INH DAILY [facility] Stop: 05/29/20 08:59 Last Admin: 04/30/20 08:31 Dose: 1 puffs Documented by: Dexamethasone 6 mg/ Syringe 1.5 mls @ 1 mls/min IV QAM FE Stop: 05/08/20 09:02 Last Admin: 04/30/20 08:30 Dose: 1 mls/min Documented by: Azithromycin 500 mg/ Dextrose 255 mls @ 125 mls/hr IV DAILY [facility] Stop: 05/06/20 08:59 Last Admin: 04/30/20 08:34 Dose: 125 mls/hr Documented by: Pantoprazole Sodium 40 mg/ (Syringe) 10 mls @ 5 mls/min IV BID [facility] Stop: 05/30/20 10:14 Ondansetron HCl (Ondansetron Inj 2 Mg/Ml 2 Ml Vial) 4 mg IV Q6H PRN PRN Reason: Nausea Stop: 05/29/20 02:41 Simethicone (Simethicone 80 Mg Chew) 80 mg PO Q6H PRN PRN Reason: Indigestion Stop: 05/29/20 14:14 Last Admin: 04/30/20 08:31 Dose: 80 mg Documented by: Zinc Sulfate (Zinc Sulfate 220 Mg Capsule) 220 mg PO QAM FE Stop: 05/29/20 08:59 Last Admin: 04/30/20 08:31 Dose: 220 mg Documented by: PG Care Time/CCT Total # of Minutes Spent Total Time Spent: 32 Total Time Spent with Patient: Total time spent is greater than 50% in coordination of care (as documented) at patient's floor/unit and/or counseling patient: Coding Level of Care Code 35953 Subseq Hosp Care Lvl 3 Diagnoses Pneumonia due to 2019 novel coronavirus U07.1; J12.82 Hypoxemia R09.02 Hypomagnesemia E83.42 Diarrhea R19.7 Epigastric pain R10.13
[2020-04-30 10:06] LABS: Lipase 234 U/L (73-393); Troponin I < 0.015 ng/ml (0-0.045)
[2020-04-30] MEDS: PANTOprazole 40 MG in SYRINGE 0 ML IV SCH ×2 (10:30→21:01)
--- NOTE | 2020-04-30 11:12 | Electrocardiogram Report ---
Test Reason : Blood Pressure : / mmHG Vent. Rate : 104 BPM Atrial Rate : 104 BPM P-R Int : 138 ms QRS Dur : 086 ms QT Int : 350 ms P-R-T Axes : 037 002 012 degrees QTc Int : 460 ms Poor data quality, interpretation may be adversely affected Sinus tachycardia Otherwise normal ECG When compared with ECG of 26-APR-2020 21:55, No significant change was found Confirmed by Darryl Taylor ([id number]) on 04/30/2020 11:11:51 AM Referred By: Delbert Gant Confirmed By:Darryl Taylor
--- NOTE | 2020-04-30 11:48 | Electrocardiogram Report ---
Test Reason : Blood Pressure : / mmHG Vent. Rate : 095 BPM Atrial Rate : 095 BPM P-R Int : 144 ms QRS Dur : 090 ms QT Int : 356 ms P-R-T Axes : 043 037 014 degrees QTc Int : 447 ms Normal sinus rhythm Normal ECG When compared with ECG of 28-APR-2020 21:44, (unconfirmed) No significant change was found Confirmed by Darryl Taylor ([id number]) on 04/30/2020 11:48:19 AM Referred By: Delbert Gant Confirmed By:Darryl Taylor
[2020-05-01] MEDS: SIMETHICONE 80 MG CHEW PO PRN (06:22)
[2020-05-01 07:10] LABS: Basophils # (auto) 0.01 K/uL (0-0.2); Basophils % (auto) 0.1 %; Hematocrit (blood only) 44.7 % (42-52); Hemoglobin 15.3 g/dL (14.0-18.0); Immature Granulocytes # (auto) 0.03 K/uL (0.00-0.02); Immature Granulocytes % (auto) 0.3 %; Lymphocytes # (auto) 2.02 K/uL (1.2-3.4); Lymphocytes % (auto) 16.9 %; Mean Corpuscular Hemoglobin 30.2 pg (25-34); Mean Corpuscular Hgb Conc 34.2 g/dL (32-36); Mean Corpuscular Volume 88.2 fL (80-100); Mean Platelet Volume 10.1 fL (7.4-10.4); Monocytes # (auto) 0.36 K/uL (0.11-0.59); Neutrophils # (auto) 9.54 K/uL (1.4-6.5); Neutrophils % (auto) 79.7 %; Platelet Count 231 K/uL (130-400); RDW Coefficient of Variation 13.3 % (11.5-14.5); RDW Standard Deviation 42.7 fL (36.4-46.3); Red Blood Count 5.07 M/uL (4.7-6.1); White Blood Count 11.96 K/uL (4.8-10.8)
[2020-05-01 07:38] LABS: Albumin Level 3.2 gm/dl (3.4-5.0); BUN Creatinine Ratio 14.2 (10-20); Calcium 9.3 mg/dl (8.5-10.1); Creatinine Clr Calc Pharmacy 95.4 ml/min; Est GFR (African American) 76.4; Est GFR (Non-African American) 65.9; Magnesium 2.2 mg/dl (1.8-2.4); Potassium 4.1 mmol/L (3.5-5.1)
[2020-05-01 07:41] LABS: Albumin Globulin Ratio 0.7 (0.9-2); Bilirubin,Total 0.6 mg/dl (0.2-1); Globulin 4.7 gm/dl (2.5-4.0); Total Protein 7.9 gm/dl (6.4-8.2)
[2020-05-01] MEDS: ZINC SULFATE 220 MG CAPSULE PO SCH (09:40)
[2020-05-01] MEDS: ACETAMINOPHEN 325 MG TAB PO PRN ×2 (09:40→18:43)
[2020-05-01] MEDS: PANTOprazole 40 MG in SYRINGE 0 ML IV SCH ×2 (09:40→21:05)
[2020-05-01] MEDS: dexAMETHasone 6 MG in SYRINGE 0 ML IV SCH (09:40)
[2020-05-01] MEDS: FLUTICASONE/VILANTEROL 200/25MCG 14 PUFFS/INHALER INH SCH (09:40)
[2020-05-01] MEDS: AZITHROMYCIN 500 MG in DEXTROSE 5% 250 ML IV SCH (09:48)
[2020-05-01] MEDS ORDERED: LORAZEPAM 2MG IV ACTIVE PROTOCOL IV PRN (11:30)
[2020-05-01] MEDS ORDERED: LORAZEPAM 1MG IV ACTIVE PROTOCOL IV PRN (11:30)
[2020-05-01] MEDS ORDERED: LORAZEPAM 3MG IV ACTIVE PROTOCOL IV PRN (11:30)
--- NOTE | 2020-05-01 22:39 | Hospitalist Progress Note ---
Date of Service May 01, 2020 Assessment & Plan (1) Pneumonia due to 2019 novel coronavirus: Pneumonia due to COVID-19 virus with hypoxemia- Dexamethasone 6 mg IV daily, plan for 10 days or until he is down to room air, whichever happens first will keep patient in the hospital for another day as he continues to require oxygen. Nasal cannula oxygen, titrate to keep pulse ox 94 to 95%, stable on 2L today DuoNebs every 4 hours as needed Azithromycin 500 mg IV daily x 5 days Breo Ellipta substitute for Dulera Zinc sulfate 200 mg p.o. every morning he had a fever this morning treated with tylenol suspect he has some COVID enteritis as well as he had diarrhea this morning (2) Hypoxemia: still on 2L NC today, no distress, lungs clear continue dexamethasone, try to wean as tolerated (3) Hypomagnesemia: replaced, now stable (4) Diarrhea: had a loose BM today, green color, no blood likely has some enteritis from COVID he is well hydrated, encouraged him to keep drinking, replace whatever he loses (5) Epigastric pain: Appears improved after BM. keep on Protonix BID for now lipase normal, troponin negative and EKG without ischemic changes continue to monitor Carafate and Simethicone did not help pain Admission and Anticipated Discharge Date Admission Date: April 29, 2020 Subjective Patient reports no new symptoms today. Patient is feeling much better, no longer bloated. Review of Systems Review of Systems: All systems reviewed & are unremarkable except as noted in HPI & below Physical Exam Physical Exam: Constitutional: WD/WN, vitals as above + ill appearing, + obese and cooperative; + uncomfortable Neck: trachea midline, no thyromegaly Respiratory: normal respiratory effort, lungs clear to auscultation Cardiovascular: RRR, no murmur, no edema Gastrointestinal (Abdomen): Inspection/Auscultation: + abdomen distended and normal bowel sounds Percussion/Palpation: abdomen soft and + tympanic to percussion; abdomen nontender, no guarding and abdomen not rigid Musculoskeletal: no cyanosis or clubbing, extremities motor strength 5/5 Skin: no rashes, warm and dry Neurologic: patellar DTR's 2+ bilat, sensation intact and PERRL, EOMI, accommodation nl, no face palsy, no dysarthria Psychiatric: A+Ox3, euthymic affect Lymphatic: no cervical or axillary lymphadenopathy Results & Data Results & Data ([facility]) Vital Signs (Past 12 Hours) Vital Signs Temp Pulse Pulse Pulse Resp BP Pulse Ox 05/01/20 19:15 36.7 C 79 18 138/75 91 05/01/20 15:59 79 05/01/20 15:49 37.0 C 85 18 127/77 90 05/01/20 11:44 36.8 C 82 18 120/78 93 PG Care Time/CCT Total # of Minutes Spent Total Time Spent with Patient: Total time spent is greater than 50% in coordination of care (as documented) at patient's floor/unit and/or counseling patient: Coding Level of Care Code 75435 Subseq Hosp Care Lvl 3 Diagnoses Pneumonia due to 2019 novel coronavirus U07.1; J12.82 Hypoxemia R09.02 Hypomagnesemia E83.42 Diarrhea R19.7 Epigastric pain R10.13 Time Spent (min) 35
[2020-05-02] MEDS: ACETAMINOPHEN 325 MG TAB PO PRN (08:47)
[2020-05-02] MEDS: AZITHROMYCIN 500 MG in DEXTROSE 5% 250 ML IV SCH (08:48)
[2020-05-02] MEDS: dexAMETHasone 6 MG in SYRINGE 0 ML IV SCH (08:49)
[2020-05-02] MEDS: ZINC SULFATE 220 MG CAPSULE PO SCH (08:49)
[2020-05-02] MEDS: PANTOprazole 40 MG in SYRINGE 0 ML IV SCH ×2 (08:49→21:36)
[2020-05-02] MEDS: FLUTICASONE/VILANTEROL 200/25MCG 14 PUFFS/INHALER INH SCH (08:49)
[2020-05-02] MEDS: NSS + 20MEQ KCL 20 MEQ/1,000 ML BAG IV SCH (13:14)
--- NOTE | 2020-05-02 22:08 | Hospitalist Progress Note ---
Date of Service May 02, 2020 Assessment & Plan (1) Pneumonia due to 2019 novel coronavirus: Pneumonia due to COVID-19 virus with hypoxemia- Dexamethasone 6 mg IV daily, plan for 10 days or until he is down to room air, whichever happens first will keep patient in the hospital for another day as he continues to require oxygen. Nasal cannula oxygen, titrate to keep pulse ox 94 to 95%, stable on 2L today DuoNebs every 4 hours as needed Azithromycin 500 mg IV daily x 5 days Breo Ellipta substitute for Dulera Zinc sulfate 200 mg p.o. every morning Patient no longer having fever, he is feeling better. Will conitinue to monitor. Only on 3 liters, however the day prior he was on 3 liters. will contiue to monitor the trend. If stabilizes or decreases, will discharge in AM. (2) Hypoxemia: still on 3L NC today, no distress, lungs clear continue dexamethasone, try to wean as tolerated (3) Hypomagnesemia: replaced, now stable (4) Diarrhea: had a loose BM today, green color, no blood likely has some enteritis from COVID he is well hydrated, encouraged him to keep drinking, replace whatever he loses (5) Epigastric pain: Appears improved after BM. This appears to have resolved. keep on Protonix BID for now lipase normal, troponin negative and EKG without ischemic changes continue to monitor Carafate and Simethicone did not help pain Admission and Anticipated Discharge Date Admission Date: April 29, 2020 Subjective Patient is feeling well. He reports no new symptoms today, He is hoping to get discharged. Review of Systems Review of Systems: All systems reviewed & are unremarkable except as noted in HPI & below Physical Exam Physical Exam: Constitutional: WD/WN, vitals as above sitting in chair, no distress Neck: trachea midline, no thyromegaly Respiratory: normal respiratory effort, lungs clear to auscultation Cardiovascular: RRR, no murmur, no edema Gastrointestinal (Abdomen): Inspection/Auscultation: + abdomen nondistended and normal bowel sounds Percussion/Palpation: abdomen soft and abdomen nontender, no guarding and abdomen not rigid Musculoskeletal: no cyanosis or clubbing, extremities motor strength 5/5 Skin: no rashes, warm and dry Neurologic: patellar DTR's 2+ bilat, sensation intact and PERRL, EOMI, accommodation nl, no face palsy, no dysarthria Psychiatric: A+Ox3, euthymic affect Lymphatic: no cervical or axillary lymphadenopathy Results & Data Results & Data ([facility]) Vital Signs (Past 12 Hours) Vital Signs Temp Pulse Pulse Pulse Resp BP BP 05/02/20 21:00 05/02/20 20:00 36.8 C 72 20 132/93 05/02/20 15:19 89 05/02/20 15:01 36.6 C 78 18 133/80 05/02/20 11:08 36.5 C 87 19 131/79 Pulse Ox Pulse Ox 05/02/20 21:00 96 05/02/20 20:00 94 05/02/20 15:19 05/02/20 15:01 95 05/02/20 11:08 93 PG Care Time/CCT Total # of Minutes Spent Total Time Spent with Patient: Total time spent is greater than 50% in coordination of care (as documented) at patient's floor/unit and/or counseling patient: Coding Level of Care Code 77228 Subseq Hosp Care Lvl 3 Diagnoses Pneumonia due to 2019 novel coronavirus U07.1; J12.82 Hypoxemia R09.02 Hypomagnesemia E83.42 Diarrhea R19.7 Epigastric pain R10.13
[2020-05-03 07:23] LABS: Hematocrit (blood only) 39.4 % (42-52); Hemoglobin 13.7 g/dL (14.0-18.0); Mean Corpuscular Hgb Conc 34.8 g/dL (32-36); Mean Corpuscular Volume 86.2 fL (80-100); Platelet Count 252 K/uL (130-400); RDW Coefficient of Variation 13.1 % (11.5-14.5); RDW Standard Deviation 41.8 fL (36.4-46.3); Red Blood Count 4.57 M/uL (4.7-6.1); White Blood Count 8.85 K/uL (4.8-10.8)
[2020-05-03] MEDS: FLUTICASONE/VILANTEROL 200/25MCG 14 PUFFS/INHALER INH SCH (08:06)
[2020-05-03] MEDS: dexAMETHasone 6 MG in SYRINGE 0 ML IV SCH (08:07)
[2020-05-03] MEDS: PANTOprazole 40 MG in SYRINGE 0 ML IV SCH ×2 (08:07→21:59)
[2020-05-03] MEDS: ZINC SULFATE 220 MG CAPSULE PO SCH (08:08)
[2020-05-03] MEDS: AZITHROMYCIN 500 MG in DEXTROSE 5% 250 ML IV SCH (08:09)
[2020-05-03 08:17] LABS: Basophils # (auto) 0.03 K/uL (0-0.2); Basophils % (auto) 0.3 %; Calcium 9.2 mg/dl (8.5-10.1); Creatinine Clr Calc Pharmacy 131.7 ml/min; Est GFR (African American) 111.3; Est GFR (Non-African American) 96.1; Immature Granulocytes # (auto) 0.08 K/uL (0.00-0.02); Immature Granulocytes % (auto) 0.9 %; Lymphocytes # (auto) 1.82 K/uL (1.2-3.4); Lymphocytes % (auto) 20.6 %; Monocytes # (auto) 0.55 K/uL (0.11-0.59); Monocytes % (auto) 6.2 %; Neutrophils # (auto) 6.37 K/uL (1.4-6.5); Potassium 4.3 mmol/L (3.5-5.1)
[2020-05-03] MEDS: SIMETHICONE 80 MG CHEW PO PRN ×2 (09:43→16:15)
[2020-05-03] MEDS: ACETAMINOPHEN 325 MG TAB PO PRN (09:44)
--- NOTE | 2020-05-03 11:13 | XRay Report ---
SINGLE VIEW CHEST CLINICAL HISTORY: Hypoxia. Covid. FINDINGS: 2 AP, portable, upright chest radiographs are compared to study dated 04/28/2020 and correlat ed with chest CT dated 04/26/2020. The heart is enlarged. The pulmonary vasculature is noncongested. Th ere is bilateral interstitial airspace consolidation, greatest in the left mid to lower lung. This is similar to previous. No large pleural effusion or pneumothorax is seen. The bony thorax is grossly i ntact. IMPRESSION: 1. Hazy interstitial airspace consolidation is similar to previous and consistent with the reported h istory of a viral pneumonitis. 2. Cardiomegaly. ACT 112: Negative or not required by law. Electronically signed by: Fausto Ontiveros M.D. 05/03/2020 11:12 AM
[2020-05-03] MEDS ORDERED: FUROSEMIDE 20 MG in SYRINGE 0 ML IV ONE (11:50)
[2020-05-03] MEDS ORDERED: FUROSEMIDE 40 MG/4 ML VIAL IV ONE (12:00)
[2020-05-03] MEDS ORDERED: POLYETHYLENE (MIRALAX) 17 GM PACK PO ONE (12:23)
[2020-05-03] MEDS: ENOXAPARIN INJ 40 MG/0.4 ML SYR SQ SCH (13:10)
[2020-05-03] MEDS: POLYETHYLENE (MIRALAX) 17 GM PACK PO SCH (16:54)
--- NOTE | 2020-05-03 23:27 | Hospitalist Progress Note ---
Date of Service May 03, 2020 Assessment & Plan (1) Pneumonia due to 2019 novel coronavirus: Pneumonia due to COVID-19 virus with hypoxemia- Dexamethasone 6 mg IV daily, plan for 10 days or until he is down to room air, whichever happens first will keep patient in the hospital for another day as he continues to require oxygen. Nasal cannula oxygen, titrate to keep pulse ox 94 to 95%, stable on 2L today DuoNebs every 4 hours as needed Azithromycin 500 mg IV daily x 5 days Breo Ellipta substitute for Dulera Zinc sulfate 200 mg p.o. every morning Patient no longer having fever, he is feeling better. Will conitinue to monitor. Only on 2 liters, however the day prior he was on 3 liters. will continue to monitor the trend. Had 2 step and he only requires 2 liters on ambulation. However, patient appeared very short of breath when standing. Ordered incentive spirometry and flutter valve. No repeat CT scan as clinically pain is the same as before and this ruled out P/E. aPlan to discharge in AM. (2) Hypoxemia: still on 3L NC today, no distress, lungs clear continue dexamethasone, try to wean as tolerated (3) Hypomagnesemia: replaced, now stable (4) Diarrhea: had a loose BM today, green color, no blood likely has some enteritis from COVID he is well hydrated, encouraged him to keep drinking, replace whatever he loses. Now having constipation, ordering miralax. (5) Epigastric pain: Appears improved after BM. This appears to have resolved. keep on Protonix BID for now lipase normal, troponin negative and EKG without ischemic changes continue to monitor Carafate and Simethicone did not help pain Admission and Anticipated Discharge Date Admission Date: April 29, 2020 Subjective Patient reports still having epigastric pain and pain at the level of the xipho id process. He reports the pain has not changed from when he came in. And worsens with deep breaths. Review of Systems Review of Systems: All systems reviewed & are unremarkable except as noted in HPI & below Physical Exam Physical Exam: Constitutional: WD/WN, vitals as above sitting in chair, no distress Neck: trachea midline, no thyromegaly Respiratory: normal respiratory effort, lungs clear to auscultation Cardiovascular: RRR, no murmur, no edema Gastrointestinal (Abdomen): Inspection/Auscultation: + abdomen mildly distended and normal bowel sounds Percussion/Palpation: abdomen soft and abdomen nontender, no guarding and abdomen not rigid Musculoskeletal: no cyanosis or clubbing, extremities motor strength 5/5 Skin: no rashes, warm and dry Neurologic: PERRL, EOMI, no face palsy, no dysarthria Psychiatric: A+Ox3, euthymic affect Lymphatic: no cervical or axillary lymphadenopathy Results & Data Results & Data ([facility]) Vital Signs (Past 12 Hours) Vital Signs Temp Pulse Pulse Pulse Pulse Pulse Pulse 05/03/20 20:07 36.6 C 67 05/03/20 19:37 05/03/20 16:07 36.4 C L 72 05/03/20 16:00 68 05/03/20 11:49 75 79 69 66 05/03/20 11:45 36.4 C L 64 Resp Resp Resp Resp Resp BP Pulse Ox 05/03/20 20:07 21 131/84 95 05/03/20 19:37 05/03/20 16:07 20 124/78 90 05/03/20 16:00 05/03/20 11:49 20 22 18 17 05/03/20 11:45 20 128/75 96 Pulse Ox Pulse Ox Pulse Ox Pulse Ox Pulse Ox 05/03/20 20:07 05/03/20 19:37 93 05/03/20 16:07 05/03/20 16:00 05/03/20 11:49 90 85 L 90 90 05/03/20 11:45 PG Care Time/CCT Total # of Minutes Spent Total Time Spent with Patient: Total time spent is greater than 50% in coordination of care (as documented) at patient's floor/unit and/or counseling patient: Coding Level of Care Code 93801 Subseq Hosp Care Lvl 3 Diagnoses Pneumonia due to 2019 novel coronavirus U07.1; J12.82 Hypoxemia R09.02 Hypomagnesemia E83.42 Diarrhea R19.7 Epigastric pain R10.13 Time Spent (min) 35
[2020-05-04] MEDS: ENOXAPARIN INJ 40 MG/0.4 ML SYR SQ SCH ×3 (00:27→23:48)
[2020-05-04] MEDS: FLUTICASONE/VILANTEROL 200/25MCG 14 PUFFS/INHALER INH SCH (08:47)
[2020-05-04] MEDS: PANTOprazole 40 MG in SYRINGE 0 ML IV SCH (08:47)
[2020-05-04] MEDS: SIMETHICONE 80 MG CHEW PO PRN ×2 (08:47→21:13)
[2020-05-04] MEDS: ZINC SULFATE 220 MG CAPSULE PO SCH ×2 (08:47→09:26)
[2020-05-04] MEDS: POLYETHYLENE (MIRALAX) 17 GM PACK PO SCH (08:48)
[2020-05-04] MEDS: dexAMETHasone 6 MG in SYRINGE 0 ML IV SCH (08:48)
[2020-05-04] MEDS: AZITHROMYCIN 500 MG in DEXTROSE 5% 250 ML IV SCH (09:06)
--- NOTE | 2020-05-04 16:14 | Hospitalist Progress Note ---
Date of Service May 04, 2020 Assessment & Plan (1) Pneumonia due to 2019 novel coronavirus: Pneumonia due to COVID-19 virus with hypoxemia. - Continue dexamethasone 6 mg PO daily x 10 days. (End date: 05/08/2020) - Continue nasal cannula oxygen, titrate to keep pulse ox 94 to 95%, stable on 2L today. - DuoNebs every 4 hours as needed - Breo Ellipta substitute for Dulera (2) Hypoxemia: Still on 3L NC today, no distress, lungs clear. - Continue dexamethasone (3) Epigastric pain: Ongoing "cramping" pain that he reports did not bother him today until he got his AM meds. Was initially thought to be maybe be due to constipation, but the constipation has resolved with continued pain. Lipase normal on, troponin negative and EKG without ischemic changes - Reduce all meds that might cause epigastric pain. - Continue PPI (4) DVT prophylaxis: Lovenox 40 mg SQ Q12h Admission and Anticipated Discharge Date Admission Date: April 29, 2020 Subjective Further stomach cramping today. Not when he woke up, but after food and after medications were given. It causes him to have a harder time breathing. He denies it causes any nausea. Reports no fevers/chills, chest pain, shortness of breath, nausea, or vomiting. Physical Exam Constitutional: WD/WN, vitals as above Eyes: EOM intact bilaterally; no conjunctival abnormality ENMT: external ear and nose normal, oropharynx normal Neck: trachea midline, no thyromegaly normal visual inspection Respiratory: normal respiratory effort, lungs clear to auscultation no respiratory distress Cardiovascular: RRR, no murmur, no edema Gastrointestinal (Abdomen): Inspection/Auscultation: abdomen normal to inspection and normal bowel sounds; abdomen not distended Percussion/Palpation: abdomen soft; abdomen nontender, no guarding and abdomen not rigid Musculoskeletal: no cyanosis or clubbing, extremities motor strength 5/5 Skin: no rashes, warm and dry Neurologic: moves all extremities and awake Psychiatric: Orientation: alert, oriented to person and cooperative Results & Data Results & Data ([facility]) Vital Signs (Past 12 Hours) Vital Signs Temp Pulse Pulse Resp BP Pulse Ox 05/04/20 15:43 36.7 C 68 20 133/78 91 05/04/20 11:49 36.8 C 70 20 127/71 97 05/04/20 08:12 36.7 C 62 20 125/77 95 05/04/20 07:40 58 L 05/04/20 06:31 36.9 C 56 L 20 116/69 97 PG Care Time/CCT Total # of Minutes Spent Total Time Spent with Patient: Total time spent is greater than 50% in coordination of care (as documented) at patient's floor/unit and/or counseling patient: Coding Level of Care Code 01477 Subseq Hosp Care Lvl 2 Diagnoses Pneumonia due to 2019 novel coronavirus U07.1; J12.82 Hypoxemia R09.02 Epigastric pain R10.13 DVT prophylaxis Z29.9
[2020-05-04] MEDS: PANTOprazole 40 MG TAB PO SCH (20:39)
[2020-05-05 07:06] LABS: Hemoglobin 14.3 g/dL (14.0-18.0); Mean Corpuscular Hemoglobin 30.5 pg (25-34); Mean Corpuscular Hgb Conc 34.9 g/dL (32-36); Mean Corpuscular Volume 87.4 fL (80-100); Mean Platelet Volume 9.9 fL (7.4-10.4); Platelet Count 322 K/uL (130-400); RDW Coefficient of Variation 13.1 % (11.5-14.5); RDW Standard Deviation 41.8 fL (36.4-46.3); Red Blood Count 4.69 M/uL (4.7-6.1)
[2020-05-05 07:38] LABS: Calcium 8.9 mg/dl (8.5-10.1); Est GFR (African American) 99.6; Est GFR (Non-African American) 85.9; Potassium 4.1 mmol/L (3.5-5.1)
[2020-05-05] MEDS ORDERED: dexAMETHasone 4 MG TAB PO SCH (09:00)
[2020-05-05] MEDS: FLUTICASONE/VILANTEROL 200/25MCG 14 PUFFS/INHALER INH SCH (09:11)
[2020-05-05] MEDS: ACETAMINOPHEN 325 MG TAB PO PRN (09:12)
[2020-05-05] MEDS: dexAMETHasone 4 MG TAB PO SCH (09:12)
[2020-05-05] MEDS: ENOXAPARIN INJ 40 MG/0.4 ML SYR SQ SCH (12:46)
--- NOTE | 2020-05-05 13:10 | Hospitalist Progress Note ---
Date of Service May 05, 2020 Assessment & Plan (1) Pneumonia due to 2019 novel coronavirus: Pneumonia due to COVID-19 virus with hypoxemia. - Continue dexamethasone 6 mg PO daily x 10 days. (End date: 05/08/2020) - Continue nasal cannula oxygen, titrate to keep pulse ox 94 to 95%, stable on 1L today. - DuoNebs every 4 hours as needed - Breo Ellipta substitute for Dulera (2) Hypoxemia: Still on 1L NC today, no distress, lungs clear. - Continue dexamethasone (3) Epigastric pain: Ongoing "cramping" pain that he reports did not bother him today until he got his AM meds on 05/04. Was initially thought to be maybe be due to constipation, but the constipation has resolved with continued pain. Lipase normal on, troponin negative and EKG without ischemic changes. - Stopped his zinc on 05/04 which he attributes as the cause of the cramping. Ddx includes for me gastritis vs. constipation vs. gastroenteritis from Covid. Lower concern for hernia given continued BMs and resolution of pain. Pericardi tis entertained due to it improving on his stomach, but the pain is lower and is not pleuritic in nature. No rub appreciated today. Pulmonary infarct or PE also considered, but patient's respiratory status is improving and again, he denies any pleuritic nature to pain. Finally, esophageal dysmotility is possible as he notes that both days the pain worsened after eating. If pain has not resolved by tomorrow, will consider gastric emptying study if possible given his Covid- status. - Continue PPI - Monitor pain for improvement. (4) DVT prophylaxis: Lovenox 40 mg SQ Q12h Admission and Anticipated Discharge Date Admission Date: April 29, 2020 Subjective Reports less abdominal cramping this morning. He feels that stopping the zinc helped. He does report that the cramping was present, but improved while on his stomach. He doesn't have any during my interview. He reports he is having bowel movements. Physical Exam Constitutional: WD/WN, vitals as above Eyes: EOM intact bilaterally; no conjunctival abnormality ENMT: external ear and nose normal, oropharynx normal Neck: trachea midline, no thyromegaly normal visual inspection Respiratory: normal respiratory effort, lungs clear to auscultation no respiratory distress Cardiovascular: RRR, no murmur, no edema Gastrointestinal (Abdomen): Inspection/Auscultation: abdomen normal to i nspection and normal bowel sounds; abdomen not distended Percussion/Palpation: abdomen soft; abdomen nontender, no guarding and abdomen not rigid Musculoskeletal: no cyanosis or clubbing, extremities motor strength 5/5 Skin: no rashes, warm and dry Neurologic: moves all extremities and awake Psychiatric: Orientation: alert, oriented to person and cooperative Results & Data Results & Data ([facility]) Vital Signs (Past 12 Hours) Vital Signs Temp Pulse Pulse Resp BP Pulse Ox Pulse Ox 05/05/20 12:08 37.0 C 80 21 142/83 H 93 05/05/20 09:50 75 05/05/20 07:49 36.5 C 83 19 132/73 93 05/05/20 05:21 37.1 C 64 18 124/73 95 05/05/20 02:00 92 PG Care Time/CCT Total # of Minutes Spent Total Time Spent with Patient: Total time spent is greater than 50% in coordination of care (as documented) at patient's floor/unit and/or counseling patient: Coding Level of Care Code 58627 Subseq Hosp Care Lvl 2 Diagnoses Pneumonia due to 2019 novel coronavirus U07.1; J12.82 Hypoxemia R09.02 Epigastric pain R10.13 DVT prophylaxis Z29.9
[2020-05-05] MEDS: SIMETHICONE 80 MG CHEW PO PRN (21:46)
[2020-05-05] MEDS: PANTOprazole 40 MG TAB PO SCH (21:46)
[2020-05-06] MEDS ORDERED: dexAMETHasone 1 MG TAB PO SCH
[2020-05-06] MEDS ORDERED: PANTOprazole 40 MG TAB PO SCH
[2020-05-06] MEDS: ENOXAPARIN INJ 40 MG/0.4 ML SYR SQ SCH ×2 (00:34→12:21)
[2020-05-06 05:46] LABS: Hematocrit (blood only) 40.8 % (42-52); Hemoglobin 14.5 g/dL (14.0-18.0); Mean Corpuscular Hemoglobin 30.7 pg (25-34); Mean Corpuscular Hgb Conc 35.5 g/dL (32-36); Mean Corpuscular Volume 86.4 fL (80-100); Platelet Count 371 K/uL (130-400); RDW Coefficient of Variation 12.7 % (11.5-14.5); Red Blood Count 4.72 M/uL (4.7-6.1); White Blood Count 11.59 K/uL (4.8-10.8)
[2020-05-06 06:20] LABS: Creatinine Clr Calc Pharmacy 132.6 ml/min; Est GFR (African American) 114.3; Est GFR (Non-African American) 98.6; Magnesium 2.3 mg/dl (1.8-2.4); Potassium 4.1 mmol/L (3.5-5.1)
[2020-05-06] MEDS: FLUTICASONE/VILANTEROL 200/25MCG 14 PUFFS/INHALER INH SCH (08:33)
[2020-05-06] MEDS: dexAMETHasone 4 MG TAB PO SCH (08:33)
--- NOTE | 2020-05-06 15:08 | Discharge Summary ---
Date of Service May 06, 2020 Admission HPI Per Admitting Provider The patient is a 49-year-old male with a past medical history including COVID-19 positive laboratory test at [facility] on 04/25/2020. He presented to the emergency department at [facility] on 04/26/2020 due to worsening symptoms, and was discharged to home on Dulera, Combivent and prednisone. Tonight patient reports with progressively worsening symptoms of shortness of breath, dyspnea on exertion and generalized fatigue. Principal Diagnosis Covid-19 pneumonia Discharge Exam Constitutional WD/WN, vitals as above Eyes EOM intact bilaterally; no conjunctival abnormality ENMT external ear and nose normal, oropharynx normal Neck trachea midline, no thyromegaly normal visual inspection Respiratory normal respiratory effort, lungs clear to auscultation no respiratory distress Cardiovascular RRR, no murmur, no edema Gastrointestinal (Abdomen) Inspection/Auscultation: abdomen normal to inspection and normal bowel sounds; abdomen not distended Percussion/Palpation: abdomen soft; abdomen nontender, no guarding and abdomen not rigid Musculoskeletal no cyanosis or clubbing, extremities motor strength 5/5 Skin no rashes, warm and dry Neurologic moves all extremities and awake Psychiatric Orientation: alert, oriented to person and cooperative Discharge Data Allergies Allergy/AdvReac Type Severity Reaction Status Date / Time No Known Allergies Allergy Unverified 04/28/20 23:26 Consultations 04/28/20 23:15 ED Decision to Admit Stat Hospital Course (1) Pneumonia due to 2019 novel coronavirus: Pneumonia due to COVID-19 virus with hypoxemia. - Continue dexamethasone 6 mg PO daily x 10 days. (End date: 05/08/2020) - Continue nasal cannula oxygen -> Discharged on room air at rest and 2L with exertion. Follow up with PCP. (2) Hypoxemia: Still on 1L NC today, no distress, lungs clear. - Continue dexamethasone (3) Epigastric pain: Ongoing "cramping" pain that he reports did not bother him today until he got his AM meds on 05/04. Was initially thought to be maybe be due to constipation, but the constipation has resolved with continued pain. Lipase normal on, troponin negative and EKG without ischemic changes. - Stopped his zinc on 05/04 which he attributes as the cause of the cramping. Ddx includes for me gastritis vs. constipation vs. gastroenteritis from Covid. Lower concern for hernia given continued BMs and resolution of pain. Pericarditis entertained due to it improving on his stomach, but the pain is lower and is not pleuritic in nature. No rub appreciated today. Pulmonary infarct or PE also considered, but patient's respiratory status is improving and again, he denies any pleuritic nature to pain. Finally, esophageal dysmotility is possible as he notes that both days the pain worsened after eating. If pain has not resolved by tomorrow, will consider gastric emptying study if possible given his Covid-status. - Continue PPI - Improved cramping on discharge. Possibly gastroenteritis vs. constipation. Can follow with PCP. (4) DVT prophylaxis: Lovenox 40 mg SQ Q12h Total Time Total Time Spent Total Time Spent (In Minutes): 35 Discharge Plan Discharge Items Patient Disposition: Home - Self-Care Reason For Visit: +COVID-19 PNEUMONIA WITH HYPOXIA Discharge Diagnosis: Covid-19 pneumonia Condition on Discharge: Fair Activity: Resume your previous activity Non-emergency contact: Primary Care Provider Call non-emergency contact if: your symptoms worsen Follow-up/Referrals: Delbert Gant Jr, DO [Primary Care Provider] - (PLEASE CALL THE OFFICE FOR APPOINTMENT) Diet: Regular Addtl Attending Provider Instructions: Mr. Arredondo, You were admitted to the hospital with Covid-19 pneumonia. This caused you to have trouble breathing, and also possibly some stomach issues. Covid definitely can cause diarrhea and stomach issues, and it seems like yours has been particularly bothersome. However, your labs have all looked good, and you are gradually feeling better. We have arranged home oxygen for you since you are still needing some oxygen. We are also sending you home with the remaining days of steroids (called dexamethasone) which help reduce inflammation and hopefully will get you feeling better sooner. You only need this for 2 more days, so take the first dose tomorrow morning and the last (second) dose on Friday morning. I also sent in an acid-blocking medication to help keep your stomach calm from any irritation or upsetness from Covid or the zinc. You can take this for a month or until you feel better. If you are still having stomach cramping into next week, please discuss this with your PCP. Please follow up with your PCP next week. Your quarantine/isolation will be done by Friday, so you can see your doctor in person or via a telephone/video visit. You should be immune from Covid for at least 3 months, though some very rare people do get reinfected. I encourage you to get the Covid vaccine at your earliest convenience to strengthen your immune system and help prevent reinfection. Pending Studies at Discharge: No Stand-Alone Forms: My [facility], Smoking Cessation Medications and DC Order Prescriptions: New pantoprazole 40 mg Tablet,Delayed Release (Dr/Ec) 40 mg PO HS Qty: 30 RF: 0 dexamethasone 6 mg tablet 6 mg PO DAILY Qty: 2 RF: 0 Continued Dulera 200-5 mcg/actuation HFA aerosol inhaler 2 puff inhalation BID PRN (Reason: Shortness Of Breath Or Wheezing) RF: 0 ipratropium-albuterol 0.5 mg-3 mg(2.5 mg base)/3 mL solution for nebulization 3 ml INHALATION QID PRN (Reason: Shortness Of Breath Or Wheezing) RF: 0 Discontinued prednisone 20 mg tablet 20 mg PO UD RF: 0 Discharge Orders: Discharge Order (Routine); Ordered 05/06/20 Ordered By: Hunter Lopez Admission Data Admit Date/Time: 04/29/20 00:20 Attending Provider: Hunter Lopez Admit Provider: Cuco Middleton Primary Care Provider: Delbert Gant Jr Other Providers: Hunter Lopez Other Interventions: Discharge Summary Assessment (RN) Last Done: 05/06/20 14:57 Coding Level of Care Code D/C Day Management >30 mins Diagnoses Pneumonia due to 2019 novel coronavirus U07.1; J12.82 Hypoxemia R09.02 Epigastric pain R10.13 DVT prophylaxis Z29.9
[2020-05-06] MEDS ORDERED: Nursing to Pharmacy Communication SCH (15:15)
== END 2020-05-06 16:00 | disposition home or self-care (01) | DRG 177 ==
LOC: ED 21:34 → SUATTDRO 04-29 00:20 → 2E 04-29 00:20